=== PATIENT | female | born 1985 | race Caucasian/White ===

== ENCOUNTER 2016-05-29 16:01 | Emergency (ER) | payer OTHER ==
[~2016-05-29] VITALS: Ht 154.9 cm; Wt 146.1 kg
[~2016-05-29 16:01] MED LIST: EC-NAPROSYN500 MG PO; FLEXERIL10 MG PO; FLONASE16 G1 BOTH NARES; LABETALOL HCL100 MG PO; LORTAB 5-325 M1 EACH PO; METFORMIN HCL500 MG PO; METOPROLOL SUCC25 MG PO; METOPROLOL TART25 MG PO; MOTRIN800 MG PO; NAPROSYN500 MG PO; NOHOMEMEDS; PERCOCET 5/31 TABLET PO; PERIDEX1 ML MM; PRENATAL TABLE1 EAC3 PO
[2016-05-29 16:07] VITALS: BP 144/78
[2016-05-29] MEDS ORDERED: PHENERGAN DM SYR1 ML PO (18:29)
[2016-05-29] MEDS ORDERED: ZITHROMAX Z-PA250 MG PO (18:29)
== END 2016-05-29 19:03 | disposition home or self-care (01) ==
LOC: EME 16:01
DX: O99.511 Diseases of the respiratory system complicating pregnancy, first trimester (principal); J40 Bronchitis, not specified as acute or chronic; M25.571 Pain in right ankle and joints of right foot; G89.29 Other chronic pain; F17.200 Nicotine dependence, unspecified, uncomplicated; Z3A.09 9 weeks gestation of pregnancy
CPT/HCPCS: 99281; 99283

== ENCOUNTER 2016-09-29 22:49 | Emergency (ER) | payer OTHER ==
[~2016-09-29] VITALS: Ht 154.9 cm; Wt 149.8 kg
[~2016-09-29 22:49] MED LIST changes: +PHENERGAN DM SYR1 ML PO; +ZITHROMAX Z-PA250 MG PO
[2016-09-29] MEDS ORDERED: METHYLPHENIDATE20 M5 PO (23:32)
[2016-09-29] MEDS ORDERED: ESCITALOPRAM OX10 MG PO (23:33)
[2016-09-30] MEDS ORDERED: CLINDAMYCIN HC300 MG PO
[2016-09-30 00:09] VITALS: BP 126/81
== END 2016-09-30 00:13 | disposition home or self-care (01) ==
LOC: EME 22:49
DX: L73.9 Follicular disorder, unspecified (principal); L03.314 Cellulitis of groin; Z33.1 Pregnant state, incidental
CPT/HCPCS: 99281; 99283

== ENCOUNTER 2016-12-19 08:08 | Inpatient (IN) | payer OTHER ==
[~2016-12-19] VITALS: Ht 154.9 cm; Wt 149.2 kg
[2016-12-19] VITALS (7 sets, daily range): BP systolic 102–122; BP diastolic 51–59
[~2016-12-19 08:08] MED LIST changes: +CLINDAMYCIN HC300 MG PO; +ESCITALOPRAM OX10 MG PO; +METHYLPHENIDATE20 M5 PO
[2016-12-19 09:16] LABS: EOSINOPHIL (%) 2.4 % (0-5); EOSINOPHIL COUNT 0.2 K/uL (0-0.3); HEMATOCRIT 34.9 % (36.0-46.0); IMMATURE GRANULOCYTE (%) 0.8 % (0.0-0.7); IMMATURE GRANULOCYTE COUNT 0.1 K/uL; INSTRUMENT ABS NEUTROPHIL CT 5.6 K/uL; LYMPHOCYTE COUNT 1.5 K/uL (1.0-2.8); MCH 29.3 PG (29.0-34.0); MEAN PLAT.VOLUME 10.3 uM^3 (9.5-12.4); MONOCYTE (%) 6.6 % (3-12); MONOCYTE COUNT 0.5 K/uL (0-0.8); NEUTROPHIL (%) 70.8 % (45-76); NEUTROPHIL COUNT 5.6 K/uL (1.8-6.4); PLATELET COUNT 185 K/uL (156-360); RBC DIS.WIDTH-CV 14.6 % (11.8-14.6); RED BLOOD COUNT 3.92 M/uL (3.80-5.20); WHITE BLOOD COUNT 7.9 K/uL (4.1-10.2)
[2016-12-19 09:27] LABS: CHLORIDE 105 mEq/L (99-109); SODIUM 137 mEq/L (136-147)
[2016-12-19 09:29] LABS: GLUCOSE 102 mg/dL (70-99)
[2016-12-19 09:30] LABS: ANION GAP 10 MEQ/L (2-14)
[2016-12-19 09:31] LABS: TOTAL BILIRUBIN 0.4 mg/dL (0.0-1.0)
[2016-12-19 09:33] LABS: ALKALINE PHOSPHATASE 115 IU/L (3-129); GFR ESTIMATE (CALCULATED) > 59 mL/min/
[2016-12-19 09:34] LABS: UREA NITROGEN (BUN) 8 mg/dL (9-23)
[2016-12-19 13:11] LABS: POINT-OF-CARE METER ID UU13113675
[2016-12-19] MEDS ORDERED: DOCUSATE SODIU100 MG PO (14:09)
[2016-12-19] MEDS ORDERED: ENDOCET 5-3251 EACH PO (14:09)
[2016-12-19] MEDS ORDERED: IBUPROFEN800 MG PO (14:09)
[2016-12-19 21:09] LABS: POINT-OF-CARE METER ID UU13113801
[2016-12-20 03:36] VITALS: BP 115/65
[2016-12-20 05:55] LABS: POINT-OF-CARE METER ID UU13113801
[2016-12-20 06:42] LABS: EOSINOPHIL (%) 1.8 % (0-5); EOSINOPHIL COUNT 0.2 K/uL (0-0.3); HEMATOCRIT 31.7 % (36.0-46.0); IMMATURE GRANULOCYTE (%) 1.1 % (0.0-0.7); IMMATURE GRANULOCYTE COUNT 0.1 K/uL; INSTRUMENT ABS NEUTROPHIL CT 7.5 K/uL; LYMPHOCYTE COUNT 1.7 K/uL (1.0-2.8); MCH 29.3 PG (29.0-34.0); MCHC 32.2 G/DL (30.0-36.0); MCV 91.1 FL (83-99); MEAN PLAT.VOLUME 10.6 uM^3 (9.5-12.4); MONOCYTE (%) 7.9 % (3-12); MONOCYTE COUNT 0.8 K/uL (0-0.8); NEUTROPHIL (%) 72.9 % (45-76); NEUTROPHIL COUNT 7.5 K/uL (1.8-6.4); PLATELET COUNT 181 K/uL (156-360); RBC DIS.WIDTH-CV 14.6 % (11.8-14.6); RBC DIS.WIDTH-SD 48.5 % (39-53); RED BLOOD COUNT 3.48 M/uL (3.80-5.20); WHITE BLOOD COUNT 10.3 K/uL (4.1-10.2)
[2016-12-20 07:43] VITALS: BP 113/52
[2016-12-20 11:00] VITALS: BP 127/57
[2016-12-20 13:35] LABS: POINT-OF-CARE METER ID UU13113801
[2016-12-20 14:35] VITALS: BP 130/62
[2016-12-20 19:12] VITALS: BP 139/63
[2016-12-20 22:50] VITALS: BP 124/61
[2016-12-21 02:20] VITALS: BP 115/56
[2016-12-21 06:26] LABS: POINT-OF-CARE METER ID UU13113801
[2016-12-21 06:59] VITALS: BP 108/55
[2016-12-21 09:36] LABS: POINT-OF-CARE METER ID UU13113801
[2016-12-21 11:14] VITALS: BP 127/55
[2016-12-21 14:03] LABS: POINT-OF-CARE METER ID UU13113801
[2016-12-21 15:10] VITALS: BP 121/56
== END 2016-12-21 18:05 | disposition home or self-care (01) | DRG 765 ==
LOC: 2WEST 08:08 → 2SOUTH 09:52 → 2WEST 12-21 18:05
PROVIDERS: Obstetrics & Gynecology
DX: O34.211 Maternal care for low transverse scar from previous cesarean delivery (principal); O15.1 Eclampsia complicating labor; O24.420 Gestational diabetes mellitus in childbirth, diet controlled; O99.214 Obesity complicating childbirth; E66.01 Morbid (severe) obesity due to excess calories; Z3A.38 38 weeks gestation of pregnancy; Z37.0 Single live birth; Z30.2 Encounter for sterilization; O10.92 Unspecified pre-existing hypertension complicating childbirth; Z91.19 Patient's noncompliance with other medical treatment and regimen; Z91.11 Patient's noncompliance with dietary regimen; Z68.41 Body mass index [BMI] 40.0-44.9, adult; O99.334 Smoking (tobacco) complicating childbirth; F17.200 Nicotine dependence, unspecified, uncomplicated
CPT/HCPCS: 80053; 82948; 85025; 86900; 86901; 88302; 93005; J0690; J1100; J1650; J1815; J2274; J2405; J3010; J7120

== ENCOUNTER 2017-09-27 19:48 | Emergency (ER) | payer OTHER ==
[~2017-09-27] VITALS: Ht 154.9 cm; Wt 140.9 kg
[~2017-09-27 19:48] MED LIST changes: +DOCUSATE SODIU100 MG PO; +ENDOCET 5-3251 EACH PO; +IBUPROFEN800 MG PO; +VENTOLIN HFA18 GM IH
[2017-09-27 20:17] LABS: HEMOGLOBIN 13.9 G/DL (11.9-15.5); MCH 29.8 PG (29.0-34.0); MCHC 33.1 G/DL (30.0-36.0); MCV 90.1 FL (83-99); PLATELET COUNT 227 K/uL (156-360); RBC DIS.WIDTH-CV 13.6 % (11.8-14.6); RBC DIS.WIDTH-SD 44.5 % (39-53); RED BLOOD COUNT 4.66 M/uL (3.80-5.20); WHITE BLOOD COUNT 10.1 K/uL (4.1-10.2)
[2017-09-27 20:32] LABS: CHLORIDE 103 mEq/L (99-109); POTASSIUM 4.3 mEq/L (3.7-5.4); SODIUM 140 mEq/L (136-147)
[2017-09-27 20:34] LABS: GLUCOSE 103 mg/dL (70-99)
[2017-09-27 20:37] LABS: CREATININE 0.8 mg/dL (0.6-1.3); GFR ESTIMATE (CALCULATED) > 59 mL/min/
[2017-09-27 20:38] LABS: UREA NITROGEN (BUN) 14 mg/dL (9-23)
[2017-09-27] MEDS ORDERED: ZITHROMAX Z-PA250 MG PO (21:52)
[2017-09-27] MEDS ORDERED: PREDNISONE20 MG PO (21:52)
[2017-09-27 22:14] VITALS: BP 133/82
== END 2017-09-27 22:14 | disposition home or self-care (01) ==
LOC: EME 19:48
DX: J40 Bronchitis, not specified as acute or chronic (principal); I10 Essential (primary) hypertension; F17.200 Nicotine dependence, unspecified, uncomplicated
CPT/HCPCS: 71046; 80048; 85027; 99281; 99285